=== PATIENT | male | born 1945 | race Hispanic/Latino ===

== ENCOUNTER 2022-10-14 08:31 | Outpatient (CLI) | payer MEDICARE | END 2022-10-14 08:32 | disposition home or self-care (01) | LOC: CSHCT 08:31 | PROVIDERS: ATTEND Family Medicine | DX: R10.9 Unspecified abdominal pain (principal); N28.9 Disorder of kidney and ureter, unspecified; K59.00 Constipation, unspecified; R91.1 Solitary pulmonary nodule | CPT/HCPCS: 74176 ==